=== PATIENT | male | born 1960 ===

== ENCOUNTER 2021-07-26 22:08 | Inpatient (IN) | payer MEDICAID ==
[~2021-07-26] VITALS: Ht 172.7 cm; Wt 85.0 kg
[2021-07-26 21:30] VITALS: BP 141/93
--- NOTE | 2021-07-26 21:45 | NUR ---
Received report from Ratna KOCH from [facility] at 2007. Pt arrived in stable condition at 2130. IV site intact. Denies pain at this time. Able to make needs known, emirati speaking. Able to ambulate without assistance.
[2021-07-26] MEDS ORDERED: ACETAMINOPHEN 650 MG SUPP.RECT RC PRN (23:15)
[2021-07-26] MEDS ORDERED: ONDANSETRON 4 MG/2 ML VIAL IV PRN (23:15)
[2021-07-26] MEDS ORDERED: MORPHINE SULFATE 2 MG/1 ML DISP.SYRIN IV PRN (23:15)
[2021-07-27 04:00] VITALS: BP 139/90
--- NOTE | 2021-07-27 05:09 | NUR ---
Slept throughout the night. IV site intact. Tylenol given for fever, tolerated well. Denies pain at this time. Able to make needs known. NPO protocols kept in place.
[2021-07-27 06:24] LABS: HEMATOCRIT 39.1 % (36.7-47.1); MEAN CORPUSCULAR HEMOGLOBIN 33.3 uug (23.8-33.4); PLATELET COUNT (AUTO) 99 K/uL (152-348)
[2021-07-27 06:45] LABS: BILIRUBIN,TOTAL 0.9 mg/dL (0.2-1.0); CREATININE 1.2 mg/dL (0.6-1.3); PHOSPHOROUS 1.9 mg/dL (2.5-4.9); TOTAL PROTEIN, SERUM 6.3 g/dL (6.4-8.2)
[2021-07-27] MEDS ORDERED: PIPERACILLIN SODIUM/TAZOBACTAM 3.375 G in IV DEXTROSE 5% 50 ML IV ONE ×3 (08:00)
[2021-07-27] MEDS: PANTOPRAZOLE SODIUM 40 MG VIAL IV SCH (08:57)
--- NOTE | 2021-07-27 11:05 | NUR ---
Pt is a/o x 4, a-febrile. Spoke with Dr. Salcido, pt is scheduled to have a laparoscopic appendectomy possible open this afternoon around 1400. Pt has been NPO, IV patent and intact. Pt is agreeable to surgery, consent signed and placed in chart, family notified. Comfort measures provided. Call light within reach.
[2021-07-27 12:00] VITALS: BP 136/91
[2021-07-27] MEDS ORDERED: BUPIVACAINE/EPI PF 0.5% 10 ML VIAL ONE (13:37)
[2021-07-27] MEDS ORDERED: BUPIVACAINE PF 0.5% 30 ML VIAL ONE (14:58)
[2021-07-27] MEDS ORDERED: HYDROMORPHONE 2 MG/1 ML DISP.SYRIN ONE (14:58)
[2021-07-27] MEDS ORDERED: MIDAZOLAM HCL 10 MG/2 ML VIAL ONE (14:58)
[2021-07-27] MEDS ORDERED: ROCURONIUM BROMIDE 50 MG/5 ML VIAL ONE (14:59)
[2021-07-27] MEDS ORDERED: PIPERACILLIN SODIUM/TAZOBACTAM 3.375 G in IV DEXTROSE 5% 100 ML IV SCH (16:00)
[2021-07-27] MEDS ORDERED: METRONIDAZOLE 500 MG/NS 100ML 500 MG in PREMIXED 1 EACH IV ONE (16:30)
[2021-07-27] MEDS ORDERED: SODIUM PHOSPHATE MM 15 MMOL in IV NORMAL SALINE 250 ML IV ONE (17:00)
[2021-07-27 17:25] LABS: HEMATOCRIT 36.5 % (36.7-47.1)
[2021-07-27 18:00] VITALS: BP 124/78
--- NOTE | 2021-07-27 18:30 | NUR ---
Pt returned from surgery, received report from nurse Gilles Brown. Pt was scheduled for a laparoscopic appendectomy possible open but ended up needing to perform a right hemicolectomy. post op diagnosis is mass on cecum and peritonitis per report. Mass has been sent to pathology by OR staff. Pt vitals upon arrival to unit at 1753 BP 124/78 HR 76 96% SpO2 on 2L NC temp 98.2 F. Pt is alert but drowsy, opens eyes on verbal communication and light touch. He is oriented x 4, family at bedside. Pt has a received one dose of Flagyl at 1630 and one dose of Ancef at 1645 in OR. Orders for incentive spirometer Q1H while awake, incentive spirometer placed in pt room with directions given to pt. Pt has a a ALLEN valve drained 105cc red fluid total by OR. Pt has dang catheter draining urine. Hgb 12.6 and hct 36.5 post op. labs to be ordered for morning blood draw.
[2021-07-27] MEDS: IV D5 1/2 NS 1000 ML 1,000 ML IV PRN ×2 (19:01)
[2021-07-27 20:00] VITALS: BP 112/75
[2021-07-27] MEDS: CEFAZOLIN 1 G in IV DEXTROSE 5% 50 ML IV SCH (23:34)
[2021-07-28] MEDS: METRONIDAZOLE 500 MG/NS 100ML 500 MG in PREMIXED 1 EACH IV SCH ×3 (00:43→16:09)
[2021-07-28 04:00] VITALS: BP 132/90
--- NOTE | 2021-07-28 05:13 | NUR ---
Slept throughout the night. Remained afebrile. Denies pain. IV site intact. Pt requested dang to be removed. Able to ambulate. Tolerated all medications well. Safety maintained throughout the shift. Will endorse to day shift.
[2021-07-28 05:50] LABS: HEMATOCRIT 34.4 % (36.7-47.1); MEAN CORPUSCULAR HEMOGLOBIN 33.2 uug (23.8-33.4); MEAN CORPUSCULAR VOLUME 95.5 fL (73.0-96.2); PLATELET COUNT (AUTO) 119 K/uL (152-348)
[2021-07-28 06:06] LABS: CREATININE 1.1 mg/dL (0.6-1.3); MAGNESIUM 2.2 mg/dL (1.8-2.4); PHOSPHOROUS 3.1 mg/dL (2.5-4.9); POTASSIUM 4.2 mmol/L (3.5-5.1)
[2021-07-28] MEDS: IV D5 1/2 NS 1000 ML 1,000 ML IV PRN ×2 (06:13→17:16)
--- NOTE | 2021-07-28 07:10 | NUR ---
Arrived to patient resting in bed comfortably with no signs of distress or discomfort. Patient states they are in no pain. IV site intact and patent. ALLEN drainage of 100c during PM shift. Bed left in lowest position with call light within reach. Comfort measures provided.
[2021-07-28] MEDS: CEFAZOLIN 1 G in IV DEXTROSE 5% 50 ML IV SCH ×3 (08:09→23:53)
[2021-07-28] MEDS: PANTOPRAZOLE SODIUM 40 MG VIAL IV SCH (08:09)
[2021-07-28 12:03] VITALS: BP 138/74
[2021-07-28 15:58] VITALS: BP 136/71
--- NOTE | 2021-07-28 18:41 | NUR ---
Patient received care well throughout the shift. ALLEN drainage during shift accumulated to 75cc. Patient tolerated medication throughout day with no signs of distress or discomfort. IV site patent and intact. Patient now on clear liquid diet. Bed left in lowest position with call light within reach. Will endorse information to PM nurse.
[2021-07-28 20:00] VITALS: BP 125/66
[2021-07-29] MEDS: MORPHINE SULFATE 2 MG/1 ML DISP.SYRIN IV PRN ×2 (00:07→22:00)
[2021-07-29] MEDS: METRONIDAZOLE 500 MG/NS 100ML 500 MG in PREMIXED 1 EACH IV SCH ×2 (01:24→09:49)
[2021-07-29 04:00] VITALS: BP 152/96
--- NOTE | 2021-07-29 05:22 | NUR ---
Slept throughout the night. C/o minimal pain, morphine given and tolerated well. IV site intact. Able to ambulate. Uses incentive spirometer when awake. Will endorse to day shift.
[2021-07-29] MEDS: IV D5 1/2 NS 1000 ML 1,000 ML IV PRN ×2 (05:35→17:09)
[2021-07-29 06:27] LABS: HEMATOCRIT 32.3 % (36.7-47.1); MEAN CORPUSCULAR HEMOGLOBIN 33.5 uug (23.8-33.4); MEAN CORPUSCULAR VOLUME 95.5 fL (73.0-96.2); PLATELET COUNT (AUTO) 137 K/uL (152-348)
[2021-07-29 06:36] LABS: MAGNESIUM 1.8 mg/dL (1.8-2.4); PHOSPHOROUS 1.9 mg/dL (2.5-4.9); POTASSIUM 3.9 mmol/L (3.5-5.1)
[2021-07-29 08:00] VITALS: BP 148/87
[2021-07-29] MEDS: PANTOPRAZOLE SODIUM 40 MG VIAL IV SCH (08:26)
[2021-07-29] MEDS: CEFAZOLIN 1 G in IV DEXTROSE 5% 50 ML IV SCH (08:26)
[2021-07-29 16:00] VITALS: BP 170/97
[2021-07-29] MEDS ORDERED: SODIUM PHOSPHATE MM 15 MMOL in IV NORMAL SALINE 250 ML IV ONE (17:00)
--- NOTE | 2021-07-29 18:46 | NUR ---
Patient received care well throughout the day. No complaints of pain or distress during shift. IV site intact and patent. Bed left in lowest position with call light within reach. Comfort measures provided. Will endorse information to PM nurse.
[2021-07-29 20:00] VITALS: BP 157/97
[2021-07-30 04:00] VITALS: BP 146/91
[2021-07-30] MEDS: IV D5 1/2 NS 1000 ML 1,000 ML IV PRN ×2 (04:38→16:49)
--- NOTE | 2021-07-30 06:22 | NUR ---
PATIENT AWAKE IN BED. SLEPT AT INTERVALS. DENIES PAIN OR DISCOMFORT. NO RESP. DISTRESS NOTED. DRESSING NOTED TO ABDOMEN C/D/I. VS WNL. IVF INFUSING WELL. CALL LIGHT IN REACH. ALL NEEDS ATTENDED. WILL CONTINUE TO MONITOR AND ASSESS.
[2021-07-30 06:47] LABS: HEMATOCRIT 35.4 % (36.7-47.1); MEAN CORPUSCULAR HEMOGLOBIN 33.4 uug (23.8-33.4); MEAN CORPUSCULAR VOLUME 93.8 fL (73.0-96.2); PLATELET COUNT (AUTO) 192 K/uL (152-348)
[2021-07-30 06:55] LABS: CREATININE 0.9 mg/dL (0.6-1.3); MAGNESIUM 1.7 mg/dL (1.8-2.4); PHOSPHOROUS 3.2 mg/dL (2.5-4.9); POTASSIUM 3.6 mmol/L (3.5-5.1)
[2021-07-30 08:00] VITALS: BP 168/106
[2021-07-30] MEDS: PANTOPRAZOLE SODIUM 40 MG VIAL IV SCH (09:35)
[2021-07-30] MEDS: MAGNESIUM SULFATE/D5W 100 ML IV SCH ×2 (09:38→11:19)
[2021-07-30 11:30] VITALS: BP 158/98
[2021-07-30 11:44] VITALS: BP 158/98
[2021-07-30 15:32] VITALS: BP 168/104
--- NOTE | 2021-07-30 17:21 | NUR ---
Patient's blood pressure elevated at two separate measurements. First blood pressure reading 168/104. 2nd blood pressure reading taken 1 hour after first reading, 154/101. Chayito CHANG notified. Order for Lisinopril 10 mg PO daily and hydralazine 10 mg q4h IV PRN to keep SBP below 160.
[2021-07-30] MEDS ORDERED: hydrALAZINE HCL 20 MG/1 ML VIAL IV PRN (17:30)
[2021-07-30] MEDS: LISINOPRIL 10 MG TABLET PO SCH (17:40)
--- NOTE | 2021-07-30 18:26 | NUR ---
Patient received care well today with no signs of distress or discomfort. Blood pressure maintained with medication and PRN medications when necessary. IV site intact and patent with no signs of infiltration. Bed left in lowest position with call light within reach. Comfort measures provided. Will endorse information to PM nurse.
[2021-07-30] MEDS: MORPHINE SULFATE 2 MG/1 ML DISP.SYRIN IV PRN (20:03)
--- NOTE | 2021-07-30 20:03 | NUR ---
MORPHINE 2 MG IVP GIVEN C/O PATIENT COMPLAINED OF PAIN ABDOMINAL AREA . CHECKED ABDOMEN SOFT WITH DRESSING CDI ,MID ABDOMEN AREA WITH ALLEN SUMP TO BULB SUCTION . ADVISED PATIENT IF PAIN PERSIST .PATIENTS DAUGHTER AT B/S INTERPRET FOR PATIENT .
--- NOTE | 2021-07-30 20:16 | NUR ---
BP 161/102 GIVEN HYDRALAZINE 10 MG IVP PRN MEDICATION , WILL CONTINUE TO MONITOR BP .
[2021-07-30 20:25] VITALS: BP 161/102
--- NOTE | 2021-07-30 22:52 | NUR ---
DR: BANDAR CAME AND EXAMINED PATIENT , REQUESTED FOR [place] SPEAKING [employer] TENDER CALLED NAHOMI ( IESHA ) . EXPLAINED TO PATIENT PLAN OF CARE AND TREATMENT .
[2021-07-31] MEDS: IV D5 1/2 NS 1000 ML 1,000 ML IV PRN ×2 (01:06→13:19)
[2021-07-31] MEDS: MORPHINE SULFATE 2 MG/1 ML DISP.SYRIN IV PRN ×2 (01:06→17:57)
--- NOTE | 2021-07-31 01:06 | NUR ---
pain medication requested MORPHINE PRN given see emar .
[2021-07-31 04:25] VITALS: BP 157/103
[2021-07-31 06:15] LABS: HEMATOCRIT 36.7 % (36.7-47.1); MEAN CORPUSCULAR HEMOGLOBIN 33.4 uug (23.8-33.4); MEAN CORPUSCULAR VOLUME 94.1 fL (73.0-96.2); PLATELET COUNT (AUTO) 217 K/uL (152-348)
[2021-07-31 06:31] LABS: CREATININE 0.9 mg/dL (0.6-1.3); MAGNESIUM 1.8 mg/dL (1.8-2.4); PHOSPHOROUS 3.3 mg/dL (2.5-4.9); POTASSIUM 3.8 mmol/L (3.5-5.1)
--- NOTE | 2021-07-31 07:40 | NUR ---
Received in bed awake, talking on the phone. No ss of pain or sob. Abdominal dressings clean and dry, claudia drain with serosanguinous drainage. Iv fluids infusing as ordered. Safety measures in place. Needs attended.
[2021-07-31] MEDS: PANTOPRAZOLE SODIUM 40 MG VIAL IV SCH (08:28)
[2021-07-31] MEDS: LISINOPRIL 10 MG TABLET PO SCH (08:28)
[2021-07-31] MEDS ORDERED: IOHEXOL 300MG/ML 100 ML INFUS..BTL ONE ×2 (11:22→14:23)
[2021-07-31] MEDS ORDERED: IV NORMAL SALINE 250 ML IV ONE ×2 (11:22→14:24)
[2021-07-31] MEDS ORDERED: SWABABLE VALVE TRANSFER SET EA MC ONE ×2 (11:22→14:24)
--- NOTE | 2021-07-31 11:42 | NUR ---
taken to ct scan
[2021-07-31 12:04] VITALS: BP 157/96
--- NOTE | 2021-07-31 12:30 | NUR ---
back from ct scan. resume iv
--- NOTE | 2021-07-31 13:05 | NUR ---
rounding with mickey payne. no new order received.
--- NOTE | 2021-07-31 13:32 | NUR ---
Return call made to dtraúl Scanlon but no answer and voicemail was full.
--- NOTE | 2021-07-31 14:00 | NUR ---
spoke to lucie higginbotham and given number to mickey payne per request.
[2021-07-31 16:00] VITALS: BP 141/71
[2021-07-31] MEDS ORDERED: PROPOFOL 200 MG/20 ML BOTTLE IV ONE (16:46)
[2021-07-31] MEDS ORDERED: SEVOFLURANE 250 ML BOTTLE IH ONE (16:46)
[2021-07-31] MEDS ORDERED: DEXAMETHASONE SOD PHOSPHATE 4 MG INJ IV ONE (16:46)
[2021-07-31] MEDS ORDERED: LIDOCAINE-MPF 2% 5 ML VIAL IJ ONE (16:46)
[2021-07-31] MEDS ORDERED: NEOSTIGMINE METHYLSULFATE 10 MG/10 ML VIAL IM ONE (16:46)
[2021-07-31] MEDS ORDERED: SUCCINYLCHOLINE CHLORIDE 200 MG/10 ML VIAL IV ONE (16:46)
[2021-07-31] MEDS ORDERED: CEFAZOLIN 1 G VIAL IM ONE (16:46)
[2021-07-31] MEDS ORDERED: ONDANSETRON 4 MG/2 ML VIAL IV ONE (16:46)
[2021-07-31] MEDS ORDERED: GLYCOPYRROLATE 0.2 MG/ML VIAL IJ ONE (16:46)
[2021-07-31] MEDS ORDERED: KETOROLAC TROMETHAMINE 30 MG INJ IM ONE (16:46)
--- NOTE | 2021-07-31 18:07 | NUR ---
ct chest/abd/pelvis resulted. per mickey carrasco she will review tomorrow. mickey payne aware.
--- NOTE | 2021-07-31 18:19 | NUR ---
20cc serosanguinous fluids emptied from drain. no change from this am assx. family at bedside.
--- NOTE | 2021-07-31 20:00 | NUR ---
RECEIVED PT ALERT AND ORIENTED X4 NO SIGNS OF DISTRESS NOTED FAMILY MEMBERS AT BEDSIDE REPORT GIVEN BY AM NURSE CECILIO. PT IS 3 DAYS POSTOP HEMICOLECTOMY. PT DENIES PAIN MEDICATION GIVEN BY AM NURSE. PT HAS IV FLUIDS OF D51/2NS INFUSING AT 90ML/HR NO SIGNS OF INFILTRATION NOTED. CALL LIGHT WITHIN REACH AND BED IN LOW POSITION. PT IS MONITORED HOURLY.
[2021-07-31 20:06] VITALS: BP 149/97
[2021-07-31] MEDS: AMOXICILLIN-CLAVUL 875-125MG TABLET PO SCH (21:16)
[2021-08-01 04:35] VITALS: BP 141/98
[2021-08-01 06:36] LABS: HEMATOCRIT 37.7 % (36.7-47.1); MEAN CORPUSCULAR HEMOGLOBIN 33.4 uug (23.8-33.4); MEAN CORPUSCULAR VOLUME 94.2 fL (73.0-96.2); PLATELET COUNT (AUTO) 247 K/uL (152-348)
[2021-08-01 06:44] LABS: CREATININE 0.9 mg/dL (0.6-1.3); MAGNESIUM 1.8 mg/dL (1.8-2.4); PHOSPHOROUS 3.2 mg/dL (2.5-4.9); POTASSIUM 3.9 mmol/L (3.5-5.1)
[2021-08-01] MEDS: PANTOPRAZOLE SODIUM 40 MG VIAL IV SCH (08:19)
[2021-08-01] MEDS: LISINOPRIL 10 MG TABLET PO SCH (08:23)
[2021-08-01] MEDS: AMOXICILLIN-CLAVUL 875-125MG TABLET PO SCH ×2 (09:04→20:25)
--- NOTE | 2021-08-01 12:03 | NUR ---
Dr Peace removed ALLEN drain at 1100 and the staple sutures should be removed in 1 week at doctor's office. No distress noted. Patient has no pain. Will continue to monitor the patient
[2021-08-01 12:56] VITALS: BP 138/93
[2021-08-01 15:45] VITALS: BP 142/96
[2021-08-01] MEDS: IV D5 1/2 NS 1000 ML 1,000 ML IV PRN (17:38)
--- NOTE | 2021-08-01 19:30 | NUR ---
Receive patient lying in bed. AAOx4. In no acute distress. Denies any pain or SOB. Complain of non-productive cough. Encourage to use incentive spirometer and states understanding. Informed Dr. Warner and ordered Robitussin DM 10ml PO q6h PRN. Order read back and verified. Will carry out order. Incision site on right side abdomen and umbilical area with julio cesar intact. s/p ALLEN drain removal, site with dressing intact. IV site on right hand intact and patent. IVF infusing. Safety measure initiated and call light within reached. Continue to monitor.
[2021-08-01 20:03] VITALS: BP 149/96
[2021-08-01] MEDS ORDERED: GUAIFENESIN/DEXTROMETHORPHAN 5 ML UDC PO PRN (20:15)
[2021-08-02 04:03] VITALS: BP 134/95
--- NOTE | 2021-08-02 06:26 | NUR ---
Patient slept well. Denies any pain or SOB. No further coughing noted. Incision site on abdominal area with julio cesar remains intact. No signs /symptoms of infection on site. Encourage to use inceptive spirometer. IV site on right hand intact and patent. IVF infusing. Needs attended to and met. Safety measure maintained and call light within reached.
[2021-08-02 06:42] LABS: HEMATOCRIT 36.2 % (36.7-47.1); MEAN CORPUSCULAR HEMOGLOBIN 33.9 uug (23.8-33.4); MEAN CORPUSCULAR VOLUME 94.8 fL (73.0-96.2); PLATELET COUNT (AUTO) 275 K/uL (152-348)
[2021-08-02 07:10] LABS: CREATININE 1.1 mg/dL (0.6-1.3); MAGNESIUM 1.9 mg/dL (1.8-2.4); PHOSPHOROUS 3.1 mg/dL (2.5-4.9); POTASSIUM 4.7 mmol/L (3.5-5.1)
--- NOTE | 2021-08-02 07:48 | NUR ---
RECEIVED PATIENT IN BED AWAKE ALERT AND ORIENTED DENIES PAIN OR DISCOMFORTS AT THIS TIME REMAIN ON IVF ORDERED WITH NO S/S OF INFILTERATION ON SITE DRESSING IS DRY AND INTACT TO S/P APPENDECTOMY DRAIN SITE REMOVAL OP SITE WITH DRESSING CLEAN DRY AND INTACT CALL LIGHTS AND PERSONAL BELONGINGS ARE WITHIN EASY REACH MADE COMFORTABLE WILL CONTINUE TO OBSERVE.
[2021-08-02] MEDS: PANTOPRAZOLE SODIUM 40 MG VIAL IV SCH (08:28)
[2021-08-02] MEDS: AMOXICILLIN-CLAVUL 875-125MG TABLET PO SCH (08:28)
[2021-08-02] MEDS: LISINOPRIL 10 MG TABLET PO SCH (08:28)
[2021-08-02] MEDS ORDERED: PANT40TA49 PO (11:44)
[2021-08-02] MEDS ORDERED: AMOX1TAB16 PO (11:44)
[2021-08-02] MEDS ORDERED: ACET650S13 RC (11:44)
[2021-08-02] MEDS ORDERED: LISI10TA29 PO (11:44)
--- NOTE | 2021-08-02 11:46 | NUR ---
PATIENT SEEN AND EXAMINED BY KATT GARCIA WITH ORDER TO ADVANCE DIET AND IF TOLERATED WELL MAY DISCHARGE PATIENT TODAY.
[2021-08-02 12:03] VITALS: BP 140/85
--- NOTE | 2021-08-02 14:00 | NUR ---
PATIENT TOLERATED SOFT DIET ORDERED DENIES ABDOMINAL PAIN NAUSEA OR VOMITING AT THIS TIME WILL DISCHARGE HOME TODAY.STATED HIS DAUGHTER WILL BE ABLE TO PICK HIM UP THIS EVENING.
[2021-08-02 16:25] VITALS: BP 134/92
--- NOTE | 2021-08-02 17:55 | NUR ---
PATIENTS DAUGHTER ALEX HERE AND PATIENT DISCHARGED TO HER CARE WITH DISCHARGE INSTRUCTIONS AND PRESCRIPTIONS AND PATIENT INSTRUCTED ON FOLLOW UP WITH THE ONCOLOGIST DR ESPAÑA AND HIS PRIMARY PHYSICIAN AND THEY EXPRESSED UNDERSTANDING DRESSING ON HIS PUBIC AREA S/P ALLEN REMOVAL WAS CHANGED AND THE JAN RIGHT LOWER ABDOMEN IS CLEAN AND INTACT IV LINES REMOVED AND PATIENT TAKEN DOWN IN W/CHAIR IN SATISFACTORY CONDITION.
[2021-08-03] MEDS ORDERED: PANTOPRAZOLE SODIUM 40 MG TABLET.DR PO SCH (07:00)
== END 2021-08-02 17:55 | disposition home or self-care (01) | DRG 231 ==
LOC: MEDSURG3 22:08
PROVIDERS: ADMIT Registered Nurse; ATTEND Nurse Practitioner Acute Care
PROC: 0DTF0ZZ Resection of Right Large Intestine, Open Approach (ICD-10-PCS; principal; 2021-07-27)
PROC: 0WJG4ZZ Inspection of Peritoneal Cavity, Percutaneous Endoscopic Approach (ICD-10-PCS; principal; 2021-07-27)
PROC: 0DTJ0ZZ Resection of Appendix, Open Approach (ICD-10-PCS; 2021-07-27)
DX: C18.0 Malignant neoplasm of cecum (principal); J15.9 Unspecified bacterial pneumonia; J90 Pleural effusion, not elsewhere classified; E87.1 Hypo-osmolality and hyponatremia; E66.9 Obesity, unspecified; Z68.28 Body mass index [BMI] 28.0-28.9, adult; I10 Essential (primary) hypertension; K35.30 Acute appendicitis with localized peritonitis, without perforation or gangrene; J98.11 Atelectasis; K57.30 Diverticulosis of large intestine without perforation or abscess without bleeding
CPT/HCPCS: 36415; 71260; 82378; 83735; 84100; 84153; 85018; 85025; 87070; 87075; 88360; 97161; C9113; G0378; J0330; J0360; J0690; J1100; J1170; J1885; J2250; J2270; J2405; J2543; J3475; J3490; Q9967